=== PATIENT | female | born 1995 ===

== ENCOUNTER 2018-04-18 21:27 | Emergency (ER) | payer OTHER, BC ==
[2018-04-18 21:45] VITALS: BP 125/75
[2018-04-18 23:19] LABS: HCG Qualitative,Urine Negative (Negative)
== END 2018-04-18 22:25 | disposition left against medical advice (07) ==
LOC: ED 21:27
DX: R51 Headache (principal); R07.9 Chest pain, unspecified; Z53.21 Procedure and treatment not carried out due to patient leaving prior to being seen by health care provider
CPT/HCPCS: 81025